=== PATIENT | female | born 1970 | race Caucasian/White ===

== ENCOUNTER → 2021-01-31 16:15 | Outpatient (CLI) | payer OTHER, SELFPAY ==
[2021-01-31] MEDS: COVID-19 VACC #1, MRNA(MOD) 100 MCG/0.5 ML VIAL IM (16:26)
== END ==
PROVIDERS: Visit Provider Internal Medicine
DX: Z23 Encounter for immunization (principal)
CPT/HCPCS: 0011A; 91301

== ENCOUNTER → 2021-03-01 16:19 | Outpatient (CLI) | payer OTHER, SELFPAY ==
[2021-03-01] MEDS: COVID-19 VACC #2, MRNA(MOD) 100 MCG/0.5 ML VIAL IM (16:29)
== END ==
PROVIDERS: Visit Provider Internal Medicine
DX: Z23 Encounter for immunization (principal)
CPT/HCPCS: 0012A; 91301